=== PATIENT | female | born 1985 | race Caucasian/White ===

== ENCOUNTER → 2021-07-01 12:47 | Outpatient (CLI) | payer OTHER, SELFPAY ==
[2021-07-01 13:47] LABS: Add Manual Diff / Slide Review NO; Basophils Absolute Auto 0 /uL (0-100); Basophils Percent Auto 0.5 % (0-2); Eosinophils Absolute Auto 0 /uL (0-450); Eosinophils Percent Auto 0.5 % (2-4); Hematocrit 41.3 % (36-46); Hemoglobin 13.6 g/dL (12.0-16.0); Lymphocytes Absolute Auto 1600 /uL (1100-4500); Lymphocytes Percent Auto 17.2 % (25-40); Mean Corpuscular HGB Conc 32.8 % (30-36); Mean Corpuscular Hemoglobin 29.2 PG (26-34); Monocytes Absolute Auto 500 /uL (0-900); Monocytes Percent Auto 5.3 % (3-14); Neutrophils Absolute Auto 7300 /uL (1500-7000); Neutrophils Percent Auto 76.5 % (50-75); Platelet Count 282 X10^3/uL (150-400); Red Blood Cell Count 4.64 X10^6/uL (4.0-5.2); Red Cell Distribution Width 13.8 % (11.6-14.8); White Blood Cell Count 9.5 X10^3/uL (4.5-11.0)
[2021-07-01 14:32] LABS: Appearance Urine UA CLEAR; Bilirubin Urine UA NEGATIVE (NEGATIVE); Color Urine UA YELLOW; Glucose Urine UA NEGATIVE (Negative); Ketones Urine UA NEGATIVE (NEGATIVE); Leukocyte Esterase Urine UA NEGATIVE (NEGATIVE); Nitrite Urine UA NEGATIVE (Negative); Occult Blood Urine UA NEGATIVE (Negative); Protein Urine UA NEGATIVE (Negative); Urobilinogen Urine UA 0.2 E.U./dL (0.2)
[2021-07-02 06:30] LABS: Varicella IgG Antibody 680 index (Immune >165)
[2021-07-02 07:50] LABS: RPR Screen Non Reactive (Non Reactive)
[2021-07-02 17:48] LABS: HIV 1 & 2 Ab/Ag 4th Gen Combo NEGATIVE (NEGATIVE); Hep C Virus Ab w/Reflex Quant NEGATIVE s/c (NEGATIVE); Hepatitis B Surface Antigen NEGATIVE s/c (NEGATIVE); Rubella Antibody IgG 58.4 IU/mL (>15)
== END ==
PROVIDERS: Referring Provider Specialist; Visit Provider Specialist
DX: Z34.81 Encounter for supervision of other normal pregnancy, first trimester (principal)
CPT/HCPCS: 36415; 80055; 81003; 86787; 86803; 86850; 86900; 86901; 87086; 87389

== ENCOUNTER → 2021-09-10 09:03 | Outpatient (CLI) | payer OTHER, SELFPAY ==
--- NOTE | 2021-09-10 09:06 | DI.US.S_ITS ---
PROCEDURE: US OB >= 14 WEEKS FETUS INDICATIONS: ANATOMY OUTSIDE/PRIOR DATING DATA: Last menstrual period (LMP): 04/25/2021. LMP-based estimated date of delivery (LALO): 01/30/2022 . First dating scan (date and location): 07/01/2021 . Estimated date of delivery (LALO) from first dating scan: 02/02/2022 . TECHNIQUE: Real-time scanning was performed of the fetus, with image documentation and biometric measurements. Endovaginal scanning: No COMPARISON: [facility], , OB <= 14 WEEKS FETUS, 07/01/2021, 12:35. FINDINGS: General: A single living intrauterine gestation is present. Presentation: Vertex. Placenta: Placental position is anterior , without previa. Amniotic fluid index: 15.8 cm, normal range is 5-24 cm. heart rate: 143 beats per minute. Maternal cervical canal: 4.9 cm long. Normal lower limit is 2.5 cm. biometrics: Biparietal diameter: 19 weeks 5 days Head circumference: 19 weeks 6 days Abdominal circumference: 19 weeks 3 days Femur length: 20 weeks 2 days Estimated gestational age from initial scan: 19 weeks 2 days Composite gestational age from present scan: 19 weeks 6 days Estimated weight and percentile: 316 g; 77th percentile Measurement variability for biometric dating: +/- 7 days from 14 weeks to 15 weeks 6 days gestation, +/- 10 days from 16 weeks to 21 weeks 6 days gestation, +/- 2 weeks from 22 weeks to 27 weeks 6 days gestation, +/- 3 weeks for 28 weeks gestation or later. weight reference: 4500 g or EFW >90/95% is considered macrosomia or large for gestational age. EFW <10% is small for gestational age. EFW 5% or less is considered intra-uterine growth restriction. Anatomic survey: Neuro: Ventricles are non-dilated at less than 10 mm. Cisterna magna is normal at 3-11 mm. Cerebellum is normal in size and morphology. Nuchal skin fold: Normal at less than 6 mm between 14-21 weeks gestational age. Face: Suboptimally visualized. Spine: No evidence for spina bifida. Heart: 4-chambered heart is present, with normal ventricular outflow tracts. Diaphragm: Diaphragm is intact. Stomach: Left-sided stomach is present. Kidneys: No hydronephrosis. Normal is less than 5 mm in 2nd trimester, less than 7 mm in 3rd trimester. Cord: 3-vessel cord has orthotopic insertion. Bladder: Normal in size. Extremities: All 4 extremities identified. IMPRESSION: 1. Normal interval growth. 2. face suboptimally visualized; otherwise normal anatomy. Follow-up recommended. Dictated by: Amaury HOUSER Interpreted: Ward Silva MD on 09/10/2021 at 13:23 Transcribed by: NOAH on 09/10/2021 at 13:25 Approved by: Ward Silva M.D. on 09/10/2021 at 15:17
== END ==
PROVIDERS: PCP Family Medicine; Referring Provider Specialist; Visit Provider Specialist
DX: Z34.82 Encounter for supervision of other normal pregnancy, second trimester (principal); Z3A.19 19 weeks gestation of pregnancy
CPT/HCPCS: 76811

== ENCOUNTER → 2022-01-05 16:06 | Outpatient (CLI) | payer BC, SELFPAY ==
[2022-01-08 08:22] LABS: Strep Grp B PCR NEG for Grp B Strep
== END ==
PROVIDERS: PCP Family Medicine; Visit Provider Specialist
DX: Z34.83 Encounter for supervision of other normal pregnancy, third trimester (principal); Z3A.36 36 weeks gestation of pregnancy
CPT/HCPCS: 87653

== ENCOUNTER 2022-01-28 07:14 | Inpatient (IN) | payer BC, SELFPAY ==
[2022-01-28 08:28] LABS: Add Manual Diff / Slide Review NO; Basophils Absolute Auto 100 /uL (0-100); Basophils Percent Auto 0.6 % (0-2); Eosinophils Absolute Auto 100 /uL (0-450); Eosinophils Percent Auto 0.9 % (2-4); Hematocrit 30.9 % (36-46); Lymphocytes Absolute Auto 2100 /uL (1100-4500); Lymphocytes Percent Auto 18.3 % (25-40); Mean Corpuscular HGB Conc 32.3 % (30-36); Mean Corpuscular Volume 77.3 fL (80-100); Monocytes Absolute Auto 700 /uL (0-900); Monocytes Percent Auto 6.2 % (3-14); Neutrophils Absolute Auto 8600 /uL (1500-7000); Platelet Count 280 X10^3/uL (150-400); Red Cell Distribution Width 14.3 % (11.6-14.8); White Blood Cell Count 11.6 X10^3/uL (4.5-11.0)
[2022-01-28] MEDS: LACTATED RINGERS 1,000 ML 100 ML IV ×2 (08:28→16:19)
[2022-01-28] MEDS: OXYTOCIN PREMIX 30 UNIT/500 ML PLAST..BAG IV (08:29)
--- NOTE | 2022-01-28 08:38 | P.HPOB_ITS ---
OB HPI Date/Time Date of admission: 01/28/22 Date Patient Seen: 01/28/22 Time Patient Seen: 08:15 History of Present Condition Chief complaint: Observation of labor : 7 Para: 3 Estimated Date of Delivery: 01/29/22 Estimated Gestational Age (weeks): 39 Narrative: Emily Gunn is a 36 year old female admitted for induction for distance from the hospital and advanced maternal age Indications Indication for induction OB: maternal distance History of Present care: good care, initiated at week # (9) and number of visits (8) Dating criteria: LMP confirmed by 1st trimester US Ultrasounds: normal mid trimester US Obstetrical complications: none Medical complications: none Preadmission Labs Blood type: O (+) positive -: Antibody screen: negative, GBS status: negative, HBsAG: negative, HIV: negative and RPR/VDLR: negative -: Chlamydia screen: not detected and Gonorrhea screen: not detected -: Rubella: immune and Varicella: immune HCAB: negative Cell-free DNA: Normal male 1 hr GTT: 133 Prior (ies) History: 01/27/2013 39 week 6 day 9 lb 2 oz male epidural 11/13/2014 39 week 4 day 8 lb 4 oz female epidural [birth year]/04/1939 weeks 5 days 8 lb 4 oz female strep pneumoniae infection NICU stay Evaluation Evaluation Baseline heart rate: 130 Variability: Moderate (11-25) monitor accelerations: Present Monitor Decelerations: Absent Contraction Frequency (minutes): 0 Category of Tracing: Reactive Status: Category l Dilation (cm): 0 Effacement (%): 40 station: -2 [facility] Medical History (Updated 01/20/22 @ 14:21 by Ck Macais MD) Adopted Surgical History (Updated 06/18/21 @ 14:57 by Peace Martinez RN) [place] teeth extracted (~2001) Family History (Updated 06/18/21 @ 15:00 by Peace Martinez RN) Mother Unknown family medical history Father Unknown family medical history Grandmother Unknown family medical history Grandfather Unknown family medical history Grandmother Unknown family medical history Grandfather Unknown family medical history Social History marital status: number of children: 3 household members: spouse and children lives independently: Yes caregiver/support person: No housing: house pets and animals: No education level: college (BA Anthropology, Sociology, History) occupational status: employed ([employer] current occupational exposures/hazards: No saundra/spiritism: Mandaen special saundra needs: No seatbelt use: always do you feel safe at home: Yes Smoking Status: Never smoker second hand exposure: No alcohol intake: never (Does not like alcohol. ) substance use type: does not use during the past year weight has: remained stable well-balanced diet: daily or most days daily servings fruits/ve-4 caffeine: Yes (2 espresso shots in am.) Type(s) of exercise: walking and weight lifting (Light weights, squat. ) frequency: 3-4 times per week duration: 30-45 minutes/day Meds Home Medications and Allergies Home Medications Medication Instructions Recorded Confirmed Type prenat.vits,pavel,wxm-evyy-jessx 1 tab PO DAILY 06/18/21 01/20/22 History ondansetron 4 mg disintegrating 4 mg PO Q6H PRN #20 tab 07/08/21 01/20/22 Rx tablet fluconazole 150 mg tablet 150 mg PO DAILY #1 tab 12/28/21 01/20/22 Rx (Diflucan) Allergies Allergy/AdvReac Type Severity Reaction Status Date / Time No Known Drug Allergies Allergy Verified 01/20/22 13:40 Review of Systems Review of Systems Narrative: Patient has noted good movement. No leakage of fluid. No regular contractions. No headaches, scotomata, epigastric pain. OB Exam Narrative Exam Narrative: Blood pressure 99/52, pulse of 83, temperature 36.8 HEENT exam within normal limits. Lungs are clear to auscultation percussion. Heart is regular rate and rhythm no S3-S4 murmurs. Abdomen is soft, nontender. Fetus confirmed vertex by ultrasound. Extremities without edema and nontender. Objective Labs Result Diagrams: 01/28/22 08:15 Labs: Laboratory Results - last 24 hr 01/28/22 08:15 WBC 11.6 H RBC 4.00 Hgb 10.0 L Hct 30.9 L MCV 77.3 L MCH 25.0 L MCHC 32.3 RDW 14.3 Plt Count 280 Neut % (Auto) 74.0 Lymph % (Auto) 18.3 L [place] % (Auto) 6.2 Eos % (Auto) 0.9 L Baso % (Auto) 0.6 Neut # (Auto) 8600 H Lymph # (Auto) 2100 [place] # (Auto) 700 Eos # (Auto) 100 Baso # (Auto) 100 Assessment and Plan Assessment and Plan Assessment and Plan narrative: 39 week gestation with distance from the hospital in advanced maternal age comes in for induction. Will start Pitocin. Patient's last baby was term and infected with strep to coccus and was in the NICU for 10 days so patient requests antibiotics during labor. Time Spent with Patient Total time spent with greater than 50% in coordination of care (as documented) at patient's floor/unit and/or counseling patient:: less than 15 minutes
[2022-01-28 10:13] LABS: COVID19 -Nasal RAPID Negative (Negative)
[2022-01-28 12:00] VITALS: BP 99/56
--- NOTE | 2022-01-28 12:24 | PM.OBPNLAB ---
Date/Time Date Patient Seen: 01/28/22 Time Patient Seen: 12:24 Pain Control Pain control: tolerating well Pelvic Exam Dilation (cm): 1 Effacement (%): 40 station: -2 Amniotic membrane status: Intact Contractions Contractions on admission: regular Monitor mode: External Pitocin rate (mU/min): 12 Contraction frequency (min): 3 Contraction duration (min): 1 Contraction pattern: Regular Contraction intensity: Mild Status status: Category l Heart Rate Baseline: 130 Monitor Accelerations: Present Monitor Decelerations: Absent Monitor Variability: Moderate Assessment and Plan Assessment: induction ongoing Plan: continuous present management
[2022-01-28] MEDS: PENICILLIN G POTASSIUM 5,000,000 UNIT in DEXTROSE 5% IN WATER 250 ML IV (17:33)
[2022-01-28] MEDS: PENICILLIN G POTASSIUM 3,000,000 UNIT/50 ML FROZ.PIGGY 100 UNIT IV ×2 (19:40→23:40)
[2022-01-28] MEDS: LACTATED RINGERS 1,000 ML 500 ML IV (22:51)
[2022-01-29] MEDS: LACTATED RINGERS 1,000 ML 500 ML IV ×3 (01:21→19:33)
--- NOTE | 2022-01-29 07:21 | PM.OBPNLAB ---
Date/Time Date Patient Seen: 01/29/22 Time Patient Seen: 09:30 Pain Control Pain control: tolerating well Comments: Patient is not having many contractions at this point. Blood pressure 85/48, temperature 36.9?, pulse of 80 Pelvic Exam Amniotic membrane status: Intact Contractions Contractions on admission: none Monitor mode: External Contraction frequency (min): 0 Status status: Category l Heart Rate Baseline: 140 Monitor Accelerations: Present Monitor Decelerations: Absent Monitor Variability: Moderate Assessment and Plan Assessment: induction ongoing Comments: Patient was restarted on Pitocin after her Hussein bulb was expelled. She was increased to 25 milliunits of Pitocin. She actually decreased rather the increased contractions. Decision was made to stop Pitocin about 3:00 a.m. to let the patient rest and reset the oxytocin receptors. Will begin Pitocin again this a.m.
[2022-01-29] MEDS: PENICILLIN G POTASSIUM 3,000,000 UNIT/50 ML FROZ.PIGGY 100 UNIT IV ×4 (09:14→22:30)
[2022-01-29] MEDS: OXYTOCIN PREMIX 30 UNIT/500 ML PLAST..BAG IV (10:51)
[2022-01-29] MEDS: FENT 2MCG/ML BUPIV 0.125% EPI 200 MCG/100 ML PLAST..BAG 25 MCG EPIDURAL (20:55)
[2022-01-29] MEDS: ONDANSETRON 4 MG/2 ML INJ IV (21:20)
[2022-01-29] MEDS: ACETAMINOPHEN 325 MG TABLET 650 MG PO (23:00)
--- NOTE | 2022-01-30 02:04 | PM.PREOP ---
Pre-operative Note COVID-19 COVID-19 status: Negative Result date/Date tested (Pos, Neg/Pending): 01/28/22 Criteria for continued procedure: Deterioration of the patient's condition or overall health Interval Note History & Physical reviewed/Exam performed by Physician: Yes Changes to H&P: Yes H&P completed within 30 days and has changed as indicated here:: Failure to progress in labor
--- NOTE | 2022-01-30 02:05 | PM.OBPNLAB ---
Date/Time Date Patient Seen: 01/30/22 Time Patient Seen: 02:05 Pain Control Pain control: epidural Pelvic Exam Dilation (cm): 8 Effacement (%): 75 station: -2 Amniotic membrane status: Ruptured Contractions Contractions on admission: regular Monitor mode: Internal Pitocin rate (mU/min): 18 Contraction frequency (min): 3 Contraction duration (min): 1 Contraction pattern: Regular Contraction intensity: Strong/Firm Intrauterine tone measurement: 70 Status status: Category l Heart Rate Baseline: 140 Monitor Accelerations: Present Monitor Decelerations: Absent Monitor Variability: Moderate Assessment and Plan Plan: (Patient with no significant change in cervix for over 6 hours despite documented adequate contractions)
[2022-01-30] MEDS: CEFAZOLIN 2 GM/20 ML SYRINGE IV (02:50)
--- NOTE | 2022-01-30 03:09 | SUR.OPER ---
Supine on Padded OR bed, head on pillow, safety belt at thigh, arms secured on padded arm boards at <90 degrees abduction. Bump under right buttock. Legs uncrossed with pillow under knees, gel pad to heels, tape over blanket to lower legs.
--- NOTE | 2022-01-30 03:22 | SUR.OPER ---
viable baby boy born at 0304, placenta delivered at 0306, at 8/9, cord blood and placenta taken to OB by OB nurse
[2022-01-30] MEDS: LACTATED RINGERS 1,000 ML 500 ML IV (03:27)
[2022-01-30 03:55] VITALS: BP 99/32; PULSE 65; RESP 14; TEMP 36.8; O2SAT 95
[2022-01-30 04:00] VITALS: BP 123/65; PULSE 70; RESP 12; O2SAT 94
--- NOTE | 2022-01-30 04:01 | P.OP_ITS ---
Operative Date/Time/Diagnoses Date of procedure: 01/30/22 Time of procedure: 04:01 Pre-op diagnosis: 1st stage arrest Post-op diagnosis: same Procedure & Clinicians Procedure: Primary low-transverse section Same procedure as scheduled: Yes Indications: 1st stage arrest Surgeon: Montserrat Mao Shipping Technician: Henna Sebastian Anesthesia Type: Epidural Operative Notes Findings: Normal tubes, ovaries, uterus. Viable male infant weighing 10 lb 9 oz with Apgars of 8 9 Closure Type: primary Specimen(s): cord blood Intraoperative meds administered: Pitocin Applied: Catheter (Hussein) Estimated Blood Loss (mL): 700 Blood products transfused: none Procedure in detail: The patient was brought to the operating room where she underwent bolus of her epidural for anesthesia. She was placed in a supine position with a left lateral tilt. A Hussein catheter was in place. Pulsatile stockings were placed and functional throughout the case. 2 g of Ancef were given IV prior to the incision. Warming was in place. The patient was prepped and draped in usual sterile fashion. A low transverse incision was made with a scalpel and the incision was carried down to the fascial layer which was incised transversely with scissors. The esol teacher assistant did her side of the incision. The midline attachments are superiorly and inferiorly. Some bleeding was controlled Bovie. The rectus muscles were in the midline and the peritoneal incision was made with no damage to internal structures. The peritoneum was incised and superiorly and inferiorly. The incision was stretched with the surgeon and esol teacher assistant placing traction. Bladder blade was placed and a bladder flap was developed and the bladder held away from the lower uterine segment. An incision was made in the uterus with the scalpel and the incision was extended with stretching. The head was elevated out of the abdomen with help with the vacuum extractor and with fundal pressure by the esol teacher assistant the baby was delivered. The was bulb suctioned for clear fluid and handed off to the warmer. Cord blood was collected. The placenta delivered spontaneously with traction. The uterus was cleaned with clean laps. The [place] incision was closed in 2 layers of 0 chromic suture the first a running locking layer the second an imbricating layer. The esol teacher assistant was helping to expose the incision. The bladder peritoneum was repaired with 2-0 Vicryl suture. The gutters were cleaned of any remaining fluids and ovaries and tubes were observed to be normal. Adequate hemostasis was noted. The perineum was closed with 2-0 Vicryl suture. The fascia layer was closed with 0 Vicryl suture with 2 stitches. The esol teacher assistant repairing half the incision with helping to retract and expose the incision for the other half. The incision was irrigated and adequate hemostasis noted. The incision was closed with interrupted 3-0 Vicryl sutures and then a subcuticular stitch of 4-0 Vicryl suture. Steri- Strips were placed. The uterus was massaged to remove any clots. The patient went to recovery room in good condition. Counts of instruments and sponges were correct. Dr. Sebastian was present throughout the case to assist with retraction, fundal pressure to deliver the infant, and suturing half the fascia. Complications: none [place] Baby 1: Infant Gender: Male Presentation: vertex Position: Left Occiput Transverse Placental Delivery Description: Manual Removal Cord Vessel Description: 3 Vessels score (1 min): 8 score (5 min): 9 weight: 10 lb 9 oz Post-operative Condition: stable Disposition: other ( Center) Aftercare: routine postop
[2022-01-30 04:05] VITALS: BP 116/59; PULSE 66; RESP 20; O2SAT 95
[2022-01-30 04:11] VITALS: BP 118/64; PULSE 69; RESP 13; O2SAT 95
[2022-01-30] MEDS: ONDANSETRON 4 MG/2 ML INJ IV (04:15)
[2022-01-30] MEDS: LACTATED RINGERS 1,000 ML 100 ML IV (04:30)
[2022-01-30] MEDS: ACETAMINOPHEN 325 MG TABLET 650 MG PO ×2 (10:07→16:21)
[2022-01-30] MEDS: DOCUSATE 100 MG CAPSULE 200 MG PO (10:08)
[2022-01-30] MEDS: KETOROLAC 30 MG/ML VIAL IV ×2 (10:08→16:21)
[2022-01-30] MEDS: IBUPROFEN 600 MG TABLET PO (22:37)
[2022-01-31] MEDS: IBUPROFEN 600 MG TABLET PO ×4 (04:40→23:02)
[2022-01-31] MEDS: ACETAMINOPHEN 325 MG TABLET 650 MG PO ×4 (04:40→23:01)
[2022-01-31 06:03] LABS: Add Manual Diff / Slide Review NO; Basophils Absolute Auto 100 /uL (0-100); Basophils Percent Auto 0.4 % (0-2); Eosinophils Absolute Auto 200 /uL (0-450); Eosinophils Percent Auto 0.9 % (2-4); Hematocrit 26.6 % (36-46); Hemoglobin 8.6 g/dL (12.0-16.0); Lymphocytes Absolute Auto 2700 /uL (1100-4500); Lymphocytes Percent Auto 13.4 % (25-40); Mean Corpuscular HGB Conc 32.5 % (30-36); Mean Corpuscular Hemoglobin 25.2 PG (26-34); Mean Corpuscular Volume 77.7 fL (80-100); Monocytes Absolute Auto 1300 /uL (0-900); Monocytes Percent Auto 6.6 % (3-14); Neutrophils Absolute Auto 15800 /uL (1500-7000); Neutrophils Percent Auto 78.7 % (50-75); Platelet Count 263 X10^3/uL (150-400); Red Blood Cell Count 3.42 X10^6/uL (4.0-5.2); Red Cell Distribution Width 14.6 % (11.6-14.8); White Blood Cell Count 20.1 X10^3/uL (4.5-11.0)
[2022-01-31] MEDS: OXYCODONE IR 5 MG TABLET PO ×2 (07:00→20:21)
--- NOTE | 2022-01-31 08:50 | PM.OBPN.1 ---
Subjective - OB Subjective Patient comments: no complaints, pain well controlled, tolerating diet and flatus present baby status: doing well feeding status: exclusively breast feeding Narrative: This patient is POD#1 s/p pCS for arrest of dilation in the setting of an over 10 lb infant. The patient reports some incisional pain, is ambulating, passing flatus, voiding, has mild lochia. No PIH or anemia symptoms, patient had anemia prior to delivery with appropriate hgb drop. Date Patient Seen: 01/31/22 Time Patient Seen: 08:53 Exam Vital Signs (past 8 hours): 82/48, HR 67, T 98F Oxygen Delivery Method Room Air Const General: cooperative, healthy appearing, comfortable and well groomed Resp Effort & Inspection: normal respiratory effort Auscultation: clear to auscultation bilaterally Cardio Rate: regular rate Rhythm: regular rhythm GI Inspection: incision (c/d/i, covered by clean bandage) Palpation: soft and No tender Other: fundus firm, well below u Extrem General: normal to inspection Objective Labs Result Diagrams: 01/31/22 05:48 Labs: Laboratory Results - last 24 hr 01/31/22 05:48 WBC 20.1 H RBC 3.42 L Hgb 8.6 L Hct 26.6 L MCV 77.7 L MCH 25.2 L MCHC 32.5 RDW 14.6 Plt Count 263 Neut % (Auto) 78.7 H Lymph % (Auto) 13.4 L [place] % (Auto) 6.6 Eos % (Auto) 0.9 L Baso % (Auto) 0.4 Neut # (Auto) 00849 H Lymph # (Auto) 2700 [place] # (Auto) 1300 H Eos # (Auto) 200 Baso # (Auto) 100 Assessment & Plan Plan day: 1 plan OB: routine postop care Comments: Patient is recovering appropriately with routine postop care. Appropriate hgb drop but started with anemia, so will start iron supplement today. Patient would like to stay until tomorrow AM. Time Spent With Patient Time: Total time spent is greater than 50% in coordination of care (as documented) at patient's floor/unit and/or counseling patient: Time with patient: less than 15 minutes
[2022-01-31] MEDS: DOCUSATE 100 MG CAPSULE 200 MG PO (09:22)
[2022-01-31] MEDS: FERROUS SULFATE 325 MG TABLET PO (09:26)
[2022-01-31] MEDS: LANOLIN OINT 7 GM 1 APPLIC TOP (16:51)
[2022-02-01] MEDS: ACETAMINOPHEN 325 MG TABLET 650 MG PO (05:42)
[2022-02-01] MEDS: IBUPROFEN 600 MG TABLET PO (05:44)
--- NOTE | 2022-02-01 08:21 | P.DS_ITS ---
Discharge Providers Provider Date of admission: 01/28/22 07:14 Discharge Date: 02/01/22 Primary care physician: Anthony Wooten DO Consults: 01/28/22 07:30 Consult to Anesthesiology Urgent Comment: Consulting Provider: Anesthesiologist Reason for consultation: epidural Has provider been notified: No 01/30/22 05:46 Consult to Veterinary Practice Manager Routine Comment: Discharge provider: Henna Sebastian MD Summary Hospital Course Date Patient Seen: 02/01/22 Time Patient Seen: 07:50 Diagnoses: primary section for arrest of dilation Hospital Course: This patient was admitted for elective induction of labor. After two days, she was taken for primary section due to arrest of dilation. She was delivered of an over 10 lb , but had an otherwise uncomplicated intraoperative and postoperative course. She was discharged home on POD#2 with routine precautions. Peripartum Data Infant Delivery Method: Section Procedures: primary section complications: none [place] 1: Gender: Male Disposition of : home Status at Discharge Cognitive/behavioral status at discharge: oriented Functional status at discharge: independent ambulation Overall status at discharge: patient is progressing back to baseline Time Spent with Patient Time attestation: Total time spent providing and/or coordinating discharge services: Objective Labs Result Diagrams: 01/31/22 05:48 Exam Vital Signs (past 8 hours): 98/62, HR 68 Oxygen Delivery Method Room Air Narrative Exam Narrative: Patient reports feeling well this AM. Good pain control, voiding, ambulating, passing flatus, mild lochia. No PIH symptoms. Const General: cooperative, healthy appearing, comfortable and acute distress GI Inspection: incision (covered by clean aquacell) Palpation: soft and No tender Discharge Plan Discharge Plan Patient Disposition: Home Discharge orders & Medications Prescriptions: New oxycodone 5 mg tablet 5 mg PO Q6H PRN (Reason: pain) Qty: 20 0RF Rx Instructions: Take as often as every 6 hours for pain. Continued ondansetron 4 mg tablet,disintegrating 4 mg PO Q6H PRN (Reason: nausea and vomiting) Qty: 20 2RF Rx Instructions: med used as PRN fluconazole [Diflucan] 150 mg tablet 150 mg PO DAILY Qty: 1 0RF Rx Instructions: Medication discontinued prenat.vits,pavel,[id number] Tablet 1 tab PO DAILY 0RF No Action hydrochlorothiazide 12.5 mg tablet 12.5 mg PO DAILY Qty: 7 0RF Follow up/Referrals: Montserrat Mao MD [Physician] - 3-5 Days (Please follow up with Dr. Mao in Tuesday at 2:30 p.m. on 02/03/2022 for inision check.) Anthony Wooten DO [Primary Care Provider] - Diet/Activity/Treatments Diet: Regular Activity: Nothing in the vagina for 6 weeks. Avoid lifting more than 10 pounds for 6 weeks. If you have increased bleeding, pain, fevers, chills, headaches, visual changes, dizziness, trouble breathing, or any other symptoms or concerns, call or come to the Emergency Department. Skin/Wound/Dressing Care Report to your healthcare provider any signs of infection, such as:: chills, fever, night sweats, increased pain, unusual drainage and unusual redness Visit Report/Discharge Packet Instructions: DI for Stand Alone Forms: Discharge: Care Discharge Data Primary Care Provider: Anthony Wooten
[2022-02-01] MEDS: FERROUS SULFATE 325 MG TABLET PO (08:44)
[2022-02-01] MEDS: DOCUSATE 100 MG CAPSULE 200 MG PO (08:44)
[2022-02-01] MEDS: OXYCODONE IR 5 MG TABLET PO (10:09)
[2022-02-01 10:14] VITALS: BP 104/68; PULSE 68; RESP 14; TEMP 36.6
== END 2022-02-01 11:15 | disposition home or self-care (01) | DRG 788 ==
PROVIDERS: Admitting Provider Specialist; PCP Family Medicine; Referring Provider Specialist; Visit Provider Specialist
PROC: 10D00Z1 Extraction of Products of Conception, Low, Open Approach (ICD-10-PCS; CPT 59514; principal; 2022-01-30 02:30)
DX: O62.1 Secondary uterine inertia (principal); Z3A.39 39 weeks gestation of pregnancy; Z37.0 Single live birth; O36.63X0 Maternal care for excessive fetal growth, third trimester, not applicable or unspecified; O99.02 Anemia complicating childbirth; D64.9 Anemia, unspecified; Z20.822 Contact with and (suspected) exposure to COVID-19
CPT/HCPCS: 01967; 01968; 36415; 59050; 59510; 59514; 85025; 86850; 86900; 86901; 87635; C9803; G0379; J0690; J1885; J2274; J2405; J2540; J2590

== ENCOUNTER 2022-08-06 08:45 | Emergency (ER) | payer BC, SELFPAY ==
[2022-08-06 08:55] VITALS: BP 146/74; PULSE 71; O2SAT 97
[2022-08-06 09:17] VITALS: BP 146/74; PULSE 72; RESP 20; TEMP 36.3; O2SAT 97; BMI 38.7
--- NOTE | 2022-08-06 09:25 | DI.US.S_ITS ---
PROCEDURE: US OB <= 14 WEEKS FETUS INDICATIONS: DECREASING HCG OUTSIDE/PRIOR DATING DATA: Last menstrual period (LMP): May 09, 2022 LMP-based estimated date of delivery (LALO): February 13, 2023. First dating scan (date and location): August 06, 2022. [facility]. TECHNIQUE: Real-time scanning was performed of the fetus and maternal pelvic organs, with image documentation. Endovaginal scanning was also performed to better visualize the fetus and maternal ovaries. COMPARISON: [facility], US, US OB <= 14 WEEKS FETUS, 07/01/2021, 12:35. FINDINGS: Embryo: No pole is visualized. There is a gestational sac with yolk sac present which measures 1.1 cm in diameter for a gestational age of 5 weeks, 6 days. There is a 0.8 x 0.2 x 0.8 cm perigestational bleed. Heart rate: No heart rate detected. Maternal organs: Ovaries are grossly unremarkable. IMPRESSION: 1. Sonographic findings suggesting a gestational sac and yolk sac without pole identified. Gestational age by mean gestational sac diameter is 5 weeks, 6 days. 2. Small perigestational bleed. 3. Grossly unremarkable appearance of the ovaries. Close clinical and sonographic surveillance is recommended to exclude ectopic . We strive to produce accurate, complete, and clear reports of imaging services. To assist us in improving patient care, this report was composed using standard report templates and voice recognition software. Therefore, it may contain abnormal punctuation, insertions and/or omissions. Occasional wrong-word or sound-alike substitutions may occur. Though we review the report and make efforts to correct it, we do recommend that the report be read carefully in proper context to recognize any text inaccuracies. Dictated by: Esme Manuel M.D. on 08/06/2022 at 11:30 Approved by: Esme Manuel M.D. on 08/06/2022 at 11:33
--- NOTE | 2022-08-06 10:37 | ED_ITS ---
HPI - Female Genitourinary General Chief complaint: Urogenital-Female Stated complaint: Per pt HCG is dropping Time Seen by Provider: 08/06/22 10:30 Source: patient Mode of arrival: Ambulatory History of Present Illness HPI Narrative: Patient here for evaluation of quantity hCG levels as well as for pelvic ultrasound. Patient denies any pelvic or abdominal pain. No nausea or vomiting. No vaginal bleeding discharge. Patient is a 2. Her last period was in April of this year. Her last baby was in January of this year. Patient is being followed by Dr. Mao OBGYSrini. She states she took a test back in April and it was negative. However a couple weeks ago she noticed that she is not had a period in almost 100 days. She took a home test and it was positive. She did go see Dr. Mao 10 days ago and quantitative hCG was 20,500. Two days later it was 16,000. She was seen outpatient laboratory yesterday and quantitative hCG was 6000. Related Data Home Medications Medication Instructions Recorded Confirmed No Known Home Medications 08/07/22 08/07/22 Allergies Allergy/AdvReac Type Severity Reaction Status Date / Time No Known Drug Allergies Allergy Verified 08/07/22 08:13 Review of Systems Review of Systems Narrative: GENERAL: Denies chills, fatigue, malaise, fever, sweats. HEENT: Denies sinus pain, ear pain, sore throat RESPIRATORY: Denies dyspnea, cough CARDIOVASCULAR: Denies chest pain, palpitations GASTROINTESTINAL: Denies nausea, vomiting, abdominal pain : Denies dysuria, frequency, hematuria MUSCULOSKELETAL: denies muscle or bony pain SKIN: Denies rash, skin lesions NEUROLOGIC: Denies weakness, numbness ROS Unobtainable: All systems reviewed & are unremarkable except as noted in HPI and below Patient History Medical History (Updated 08/06/22 @ 12:03 by Jono Carpenter MD) Adopted Surgical History (Updated 08/07/22 @ 09:27 by oLrenza Vazquez MD) Status post section [place] teeth extracted (~2001) Family History Mother Unknown family medical history Father Unknown family medical history Grandmother Unknown family medical history Grandfather Unknown family medical history Grandmother Unknown family medical history Grandfather Unknown family medical history Substance Use Type: does not use Exam Narrative Exam Narrative: GENERAL: in no distress, not toxic not dyspneic HEAD: Normocephalic. EYES: Pupils equal round No scleral icterus. ENT: Mucous membranes moist. NECK: Trachea midline. CARDIOVASCULAR: Regular rate and rhythm without murmurs RESPIRATORY: Clear to auscultation. Breath sounds equal bilaterally. No wheezes, rales, or rhonchi. GASTROINTESTINAL: Abdomen soft, non-tender EXTREMITIES: No gross deformities. BACK: No flank tenderness. NEURO: AOx4. SKIN: Warm and dry PSYCH: Not anxious, is cooperative Initial Vital Signs Initial Vital Signs: Vital Signs Pulse Rate 71 08/06/22 08:55 Blood Pressure 146/74 H 08/06/22 08:55 Pulse Oximetry 97 08/06/22 08:55 Course Course Course Narrative: No new issues during her stay Orders Ordered: ED Orders 08/06/22 09:25 US OB <= 14 weeks fetus Stat 08/06/22 10:30 Beta HCG, Quant [HCG Quantitative /Beta subunit] Stat Reevaluation(s) Reevaluation #1: Reviewed results with patient. She does now that she missed appointment with Dr. Vazquez yesterday. Inform patient about findings on ultrasound and quantitative hCG. She is had miscarriages in the past as well as D and C's in the past. She would like to follow up with Dr. Vazquez and see about spontaneous passage of the products of conception, she is had done that before in the past. She is also had D and C's in the past. Not toxic at discharge. Return precautions reviewed with her Consultations Consultation #1: Reviewed with OBGYN, Dr. Vazquez, patient can be discharged home and she will follow up the patient for spontaneous passage of demise of this or patient can elect for D&C. Patient is O positive blood from previous blood work January of this year from . Patient missed her appointment yesterday with Dr. Vazquez. Patient had seen Dr. Mao temporarily because of a family emergency for Dr. Vazquez. Time: 11:52 Vital Signs Vital signs: Vital Signs - 8 hr 08/06/22 09:17 08/06/22 08:55 08/06/22 08:55 Temperature 97.4 F L Pulse Rate 72 71 Respiratory Rate 20 Blood Pressure 146/74 H 146/74 H Pulse Oximetry 97 97 Oxygen Delivery Method Room Air 08/06/22 11:19 Temperature Pulse Rate 70 Respiratory Rate 18 Blood Pressure 140/70 Pulse Oximetry 98 Oxygen Delivery Method MDM - Female Genitourinary Lab Data Labs: Lab Results 08/06/22 Range/Units 10:30 HCG, Quant 6300.2 mIU/mL Imaging Data US - OB: Radiologist's Impression: [address] [address] Ultrasound Report Signed Patient: Emily Gunn MR#: [id number] : 1985 Acct:[id number] Age/Sex: 37 / F Date of Service: 08/06/22 Loc: ED Accession Number: [id number] ?? Procedure: US OB <= 14 weeks fetus Ordering Provider: Jono Carpenter MD PROCEDURE:? US OB <= 14 WEEKS FETUS ? INDICATIONS:? DECREASING HCG ? OUTSIDE/PRIOR DATING DATA:? Last menstrual period (LMP):? May 09, 2022 LMP-based estimated date of delivery (LALO):? February 13, 2023. First dating scan (date and location):? August 06, 2022.? [facility]. ? TECHNIQUE:? Real-time scanning was performed of the fetus and maternal pelvic organs, with image documentation.? Endovaginal scanning was also performed to better visualize the fetus and maternal ovaries.? ? COMPARISON:? [facility], , US OB <= 14 WEEKS FETUS, 07/01/2021, 12:35. ? FINDINGS:? ? Embryo:? No pole is visualized.? There is a gestational sac with yolk sac present which measures 1.1 cm in diameter for a gestational age of 5 weeks, 6 days.? There is a 0.8 x 0.2 x 0.8 cm perigestational bleed. ? Heart rate:? No heart rate detected. ? Maternal organs:? Ovaries are grossly unremarkable. ? ? IMPRESSION:? ? 1. Sonographic findings suggesting a gestational sac and yolk sac without pole identified.? Gestational age by mean gestational sac diameter is 5 weeks, 6 days. ? 2. Small perigestational bleed. ? 3. Grossly unremarkable appearance of the ovaries.? Close clinical and sonographic surveillance is recommended to exclude ectopic .? ? We strive to produce accurate, complete, and clear reports of imaging services. To assist us in improving patient care, this report was composed using standard report templates and voice recognition software. Therefore, it may contain abnormal punctuation, insertions and/or omissions. Occasional wrong-word or sound-alike substitutions may occur. Though we review the report and make efforts to correct it, we do recommend that the report be read carefully in proper context to recognize any text inaccur acies. ? ? Dictated by: Esme Manuel M.D. on 08/06/2022 at 11:30 ? ? Approved by: Esme Manuel M.D. on 08/06/2022 at 11:33 ? MDM Narrative Medical decision making narrative: Appropriate for discharge home. Hemodynamically stable at this time. No vaginal bleeding. Ultrasound does show likely missed . Patient is comfortable for discharge home and observation and possible outpatient D and C and follow up with Dr. Vazquez. Return precautions reviewed with her. No CBC or further laboratory studies indicated this time. Past laboratory studies reveal she is O-positive blood type. Discharge Plan Departure Patient Disposition: Home Clinical Impression: , missed Instructions: DI for Threatened Activity Restrictions/Additional Instructions: Please call Dr. Vazquez office today to reschedule your appointment and to follow up today's findings on ultrasound of threatened miscarriage. You may start having pelvic cramping and vaginal bleeding, this would likely beginning the process of miscarriage. Return immediately if any dizziness or concerns of vaginal bleeding. Prescriptions: No Action No Known Home Medications Referrals: Anthony Wooten DO [Primary Care Provider] - Visit Report Forms: Patient Portal/API
--- NOTE | 2022-08-06 11:08 | PC.NURSE ---
pt concerned for HCG dropping, pt sent to ed for US. pt states she thinks she may be 12 weeks , unsure because her first urine test was negative.
[2022-08-06 11:15] LABS: HCG Quantitative /Beta subunit 6300.2 mIU/mL
[2022-08-06 11:19] VITALS: BP 140/70; PULSE 70; RESP 18; O2SAT 98
== END 2022-08-06 12:08 | disposition home or self-care (01) ==
PROVIDERS: Emergency Provider Emergency Medicine; PCP Family Medicine
DX: O02.1 Missed abortion (principal)
CPT/HCPCS: 36415; 76801; 76817; 84702; 99284

== ENCOUNTER 2022-08-07 07:59 | Day surgery (SDC) | payer BC, SELFPAY ==
[2022-08-07] VITALS (8 sets, daily range): BP systolic 118–128; BP diastolic 64–80; PULSE 41–64; RESP 10–20; TEMP 36–36.5; O2SAT 93–99; BMI 41.6
--- NOTE | 2022-08-07 | PATH_ITS ---
[facility] Accession Number: [id number] . 01 Material submitted: . product of conception - PRODUCTS OF CONCEPTION . 01 Diagnosis: Products Of Conception: Decidualized tissue and hypersecretory endometrium. Chorionic villi or other products of conception are not identified. See comment. [facility] 08/13/2022 1132 Local . 01 Comment: The absence of identifiable products of conception (chorionic villi or embryonic tissue) within the specimen raises the possibility of ectopic gestation; particularly in the presence of decidualized tissue that otherwise suggests the effect of . Alternately, if the patient's beta-HCG is declining, the gestational sac and tissue may have been passed previous to the curettage.Clinical correlation is recommended. . 01 Electronically signed: . Patricia Mata MD, Pathologist NPI- [id number] . 01 Gross description: . The specimen is received in formalin labeled with the patient's name and products of conception, and consists of multiple serna variable spongy to membranous soft tissue fragments admixed with mucoid material aggregating to 5.2 x 4.5 x 1.0 cm. No tissue is identified. News Commentator sections are submitted in cassettes A1-A2. ([id number]) . The remaining specimen is submitted entirely in cassettes A3-A8. ([id number]) /MRV 08/12/2022 1150 Local . 01 Pathologist provided ICD-10: O02.1 . 01 CPT . 798707 Performed at: 01 [facility] [address] [place] [address] [address], [place], [place] [id number] MD Amanule Wilkerson MD Phone: [phone]
--- NOTE | 2022-08-07 08:26 | SUR.OPER ---
Lithotomy on padded OR bed, head on pillow, arms secured on padded arm boards at <90 degrees abduction. Legs secured in padded yellow fins stirrups.
[2022-08-07] MEDS: LACTATED RINGERS 1,000 ML 100 ML IV (08:38)
[2022-08-07 09:03] LABS: COVID19 -Nasal RAPID Negative (Negative)
--- NOTE | 2022-08-07 09:24 | P.HP_ITS ---
History of Present Illness History of Present Illness Date Patient Seen: 08/07/22 Time Patient Seen: 09:25 Chief complaint: surgery Narrative: Patient is a 37-year-old 7 para 4 with a missed at 6 weeks gestation. Beta HCG levels are dropping. No heart motion on ultrasound. Patient History Medical History (Updated 08/06/22 @ 12:03 by Jono Carpenter MD) Adopted Surgical History (Updated 08/07/22 @ 09:27 by Lorenza Vazquez MD) Status post section [place] teeth extracted (~2001) Family & Social History Family History Mother Unknown family medical history Father Unknown family medical history Grandmother Unknown family medical history Grandfather Unknown family medical history Grandmother Unknown family medical history Grandfather Unknown family medical history Social History: household members spouse,children lives independently Yes caregiver/support person No Tobacco & Substance use: Smoking Status Never smoker alcohol intake never Substance Use Type does not use Meds Home Medications and Allergies Home Medications Medication Instructions Recorded Confirmed Type No Known Home Medications 08/07/22 08/07/22 History Allergies Allergy/AdvReac Type Severity Reaction Status Date / Time No Known Drug Allergies Allergy Verified 08/07/22 08:13 Exam Vital Signs (past 8 hours): - 08/07/22 08:32 Temperature 97.3 F L Pulse Rate 61 Respiratory Rate 20 Blood Pressure 123/77 Pulse Oximetry 98 Oxygen Delivery Method Room Air Oxygen Delivery Method Room Air Narrative Exam Narrative: HEENT: No thyromegaly, no anterior cervical or supraclavicular lymphadenopathy. Lungs:Clear to auscultation bilaterally, no wheezes. Cardiovascular: Regular rate and rhythm, no murmurs, rubs, or gallops. Abdomen: Well-healed Pfannenstiel scar. No hepatosplenomegaly. No masses palpable. External genitalia: Normal Vagina: Normal Cervix: Normal Bimanual exam: 7 Week size anterior uterus. Mobile. No adnexal masses or tenderness. Objective Labs Labs: Laboratory Results - last 24 hr 08/07/22 08:27 SARS-CoV-2 (PCR) Negative Assessment & Plan Assessment & Plan narrative: Assessment: 37-year-old 7 para 4 with a missed at 6 weeks gestation Blood type O-positive Plan: Suction D&C The risks, benefits, and alternatives to the procedure were explained to the patient. The risks including bleeding, infection, and uterine perforation. She understands these risks and agrees to proceed. A full par Q was held and consent form was signed. COVID-19 COVID-19 status: Negative Result date/Date tested (Pos, Neg/Pending): 08/07/22 Time Spent With Patient Time with patient: less than 30 minutes Critical Care time: I spent a total of [] minutes of critical care time on this patient's care today; this time is exclusive of procedural time.
--- NOTE | 2022-08-07 09:29 | PM.PREOP ---
Pre-operative Note COVID-19 COVID-19 status: Negative Result date/Date tested (Pos, Neg/Pending): 08/07/22 Criteria for continued procedure: Non-surgical alternatives not available or appropriate per current SOC Interval Note History & Physical reviewed/Exam performed by Physician: Yes Changes to H&P: No H&P completed within 30 days and has changed as indicated here:: 08/07/22
[2022-08-07] MEDS: ACETAMINOPHEN IV 1,000 MG/100 ML VIAL 400 MG IV (09:40)
--- NOTE | 2022-08-07 09:51 | P.OP_ITS ---
Operative Date/Time/Diagnoses Date of procedure: 08/07/22 Time of procedure: 09:51 Pre-op diagnosis: Missed at 6 weeks gestation Post-op diagnosis: same Procedure & Clinicians Procedure: Procedures Operation Date: 08/07/22 09:00 Actual Procedure Side Surgeon p Suction Dilation and Curettage Not Applicable Lorenza Vazquez MD Indications: Missed at 6 weeks gestation Surgeon: Lorenza Vazquez Operative Notes Findings: Seven week size anteverted uterus Large amount of products conception Closure Type: not applicable Specimen(s): products of conception Estimated blood loss (mL): 50 Blood products transfused: none Procedure in detail: After informed consent was obtained, the patient was taken to the operating room where she was placed in the dorsal supine position. After adequate IV sedation, she was placed in the dorsal lithotomy position, and prepped and draped in the usual sterile fashion. A time-out was performed. A bivalve speculum was placed into the vagina and the anterior lip of the cervix was grasped with a single- tooth tenaculum. The cervical os was sequentially dilated to the # 8 Hegar dilator. The # 7 curved plastic curette passed easily into the endometrial cavity. Several passes with suction revealed a large amount of products of conception. The suction curette was removed. Gentle sharp curettage was performed yielding minimal amount of tissue. One more pass with suction revealed a small amount of blood only. The instruments were removed from the uterus. The single-tooth tenaculum was removed from the anterior lip of the cervix. The bivalve speculum was removed from the vagina. Sponge, lap, and in strument counts were correct x2. Patient tolerated the procedure well, and was taken to PACU in stable condition. Complications: none Post-operative Condition: stable Disposition: PACU Plan for aftercare: Home after recovery
== END 2022-08-07 10:50 | disposition home or self-care (01) ==
PROVIDERS: PCP Family Medicine; Referring Provider Obstetrics & Gynecology; Visit Provider Obstetrics & Gynecology
PROC: (CPT 58120; principal; 2022-08-07 09:00)
DX: O02.1 Missed abortion (principal); Z3A.01 Less than 8 weeks gestation of pregnancy; Z20.822 Contact with and (suspected) exposure to COVID-19
CPT/HCPCS: 59820; 01965; 87635; J0131; J2704